=== PATIENT | female | born 1935 | race Caucasian/White ===

== ENCOUNTER 2016-08-15 13:17 | Emergency (ER) | payer OTHER ==
[2016-08-15 18:05] VITALS: BP 124/82
== END 2016-08-15 18:05 | disposition home or self-care (01) ==
LOC: ED 13:17
DX: R60.0 Localized edema (principal); S80.811A Abrasion, right lower leg, initial encounter; M54.5 Low back pain; I10 Essential (primary) hypertension; X58.XXXA Exposure to other specified factors, initial encounter; Z98.890 Other specified postprocedural states; Y93.89 Activity, other specified; Y99.8 Other external cause status; Y92.89 Other specified places as the place of occurrence of the external cause
CPT/HCPCS: Q0092

== ENCOUNTER → 2016-08-30 | Outpatient (CLI) | payer OTHER | END | disposition home or self-care (01) | LOC: US 10:59 | PROC: B54DZZZ Ultrasonography of Bilateral Lower Extremity Veins (ICD-10-PCS; principal; 2016-08-30) | DX: R60.0 Localized edema (principal) ==

== ENCOUNTER → 2016-09-19 | Outpatient (CLI) | payer OTHER | END | disposition home or self-care (01) | LOC: RD 14:36 | DX: M79.672 Pain in left foot (principal) ==

== ENCOUNTER → 2016-12-07 | Outpatient (CLI) | payer OTHER | END | disposition home or self-care (01) | LOC: US 14:20 | PROC: B54CZZZ Ultrasonography of Left Lower Extremity Veins (ICD-10-PCS; principal; 2016-12-07) | DX: I82.432 Acute embolism and thrombosis of left popliteal vein (principal) ==

== ENCOUNTER → 2019-05-02 | Outpatient (CLI) | payer OTHER | END | disposition home or self-care (01) | LOC: MI 12:33 | PROC: BR39ZZZ Magnetic Resonance Imaging (MRI) of Lumbar Spine (ICD-10-PCS; principal; 2019-05-02) | DX: G89.4 Chronic pain syndrome (principal); M54.5 Low back pain ==

== ENCOUNTER 2019-11-02 21:04 | Emergency (ER) | payer OTHER ==
[~2019-11-02] VITALS: Ht 162.6 cm; Wt 93.9 kg
[2019-11-02 21:13] VITALS: Ht 162.6 cm; Wt 93.9 kg
[2019-11-02 22:35] VITALS: BP 149/91
== END 2019-11-02 22:36 | disposition home or self-care (01) ==
LOC: ED 21:04
DX: S91.302A Unspecified open wound, left foot, initial encounter (principal); I10 Essential (primary) hypertension; M54.5 Low back pain; W22.8XXA Striking against or struck by other objects, initial encounter; Y93.89 Activity, other specified; Y92.89 Other specified places as the place of occurrence of the external cause; Y99.8 Other external cause status
CPT/HCPCS: 90715; J2001; Q0092